=== PATIENT | female | born 1995 | race Caucasian/White ===

== ENCOUNTER → 2019-01-10 | Outpatient (CLI) | payer OTHER | END | disposition home or self-care (01) | LOC: LAB 13:28 | PROVIDERS: ATTEND Preventive Medicine Preventive Medicine/Occupational Environmental Medicine | DX: Z02.1 Encounter for pre-employment examination (principal) | CPT/HCPCS: 36415; 86706; 86735; 86762; 86765 ==

== ENCOUNTER 2025-04-16 07:38 | Inpatient (IN) | payer MEDICAID, OTHER ==
[~2025-04-16] VITALS: Ht 162.6 cm; Wt 61.1 kg
[2025-04-16 08:59] VITALS: PULSE 77; RESP 16; O2SAT 98
--- NOTE | 2025-04-16 08:59 | ED.PDOC ---
GI ASSESSMENT HPI Comments 29 year old female with PMHx ulcerative colitis presents to the ED with a chief compliant of rectal bleeding onset 1 month. Patient has been experiencing rectal bleeding for the past month, [place] [facility] [place] recommended to follow up with GI specialist for colonoscopy. She has appt 04/28/25 with GI specialist. For the p ast few weeks, she has noticed bruising on BLE, generalized muscle aches, generalized weakness. She was diagnosed with ulcerative colitis a few years ago, did not follow up with GI at the time. Denies fall, injury, trauma, nausea, vomiting, diarrhea, dysuria, hematuria, melena, dizziness, chest pain, shortness of breath. No other symptoms or modifying factors present at this time. Chief Complaint: Lower Extremity Time Seen by MD: 08:40 Reviewed Notes: Medications, Allergies Allergies: Coded Allergies: NO KNOWN ALLERGIES (Unverified , 04/16/25) Information Source: Patient Mode of Arrival: Ambulatory Timing: Weeks Duration: Since onset Prehospital treatment: None Vomitus: None Severity: Moderate Recent: None Recent Hx of: None Associated sign and symptoms: Blood in Stool Past Medical History Past Medical History (Other): ulcerative colitis Surgical History: Denies all surgeries BUHR DRESSER History: No Pertinent BUHR DRESSER History Family History Family History: Reviewed,noncontributory to illness, No family hx of Cancer, No family hx of DM, No family hx of Heart flory, No family hx of HTN, No family hx ofKidney flory, No family hx of Liver flory, No family hx of Lung flory, No family hx of Stroke Social History Smoker: Non-Smoker Alcohol: Denies ETOH Use Drugs: Denies Drug Use Lives In: Home Constitutional: reports: weakness; denies: chills, diaphoresis, fatigue, fever, malaise, sweats, others EENTM: denies: blurred vision, double vision, ear bleeding, ear discharge, ear drainage, ear pain, ear ringing, eye pain, eye redness, hearing loss, mouth pain, mouth swelling, nasal discharge, nose bleeding, nose congestion, nose pain, photophobia, tearing, throat pain, throat swelling, voice changes, others Respiratory: denies: cough, hemoptysis, orthopnea, SOB at rest, shortness of breath, SOB with excertion, stridor, wheezing, others Cardiovascular: denies: chest pain, dizzy spells, diaphoresis, Dyspnea on exertion, edema, irregular heart beat, left arm pain, lightheadedness, palpitations, PND, syncope, others Gastrointestinal: reports: rectal bleeding; denies: abdomen distended, abdominal pain, blood streaked bowels, constipated, diarrhea, dysphagia, difficulty swallowing, hematemesis, melena, nausea, poor appetite, poor fluid intake, rectal pain, vomiting, others Genitourinary: denies: abnormal vagina bleeding, burning, dyspareunia, dysuria, flank pain, frequency, hematuria, incontinence, pain, , vagina discharge, urgency, others Neurological: denies: dizziness, fainting, headache, left sided numbness, left sided weakness, numbness, paresthesia, pre-existing deficit, right sided numbness, right sided weakness, seizure, speech problems, tingling, tremors, weakness, others Musculoskeletal: reports: others (BLE brusing, generalized muscle aches); denies: back pain, gout, joint pain, joint swelling, muscle pain, muscle stiffness, neck pain Integumetry: reports: bruises (BLE); denies: change in color, change in hair/nails, dryness, laceration, lesions, lumps, rash, wounds, others Allergic/Immunocompromised: denies: Difficulty Healing, Frequent Infections, Hives, Itching, others Hematologic/Lymphatic: denies: anemia, blood clots, easy bleeding, easy bruising, swollen glands, others Endocrine: denies: excessive hunger, excessive sweating, excessive thirst, excessive urination, flushing, intolerance to cold, intolerance to heat, unexplained weight gain, unexplained weight loss, others Psychiatric: denies: anxiety, bipolar disorder, depression, hopeless, panic disorder, schizophrenia, sleepless, suicidal, others All Other Systems: Reviewed and Negative Physical Exam General Appearance: Normal, Other (pale appearance) HEENT: Normal ENT Inspection, Pharynx Normal, TMs Normal Neck: Full Range of Motion, Non-Tender, Normal, Normal Inspection Respiratory: Chest Non-Tender, Lungs Clear, No Accessory Muscle Use, No Respiratory Distress, Normal Breath Sounds Cardiovascular: No Edema, No JVD, No Murmur, No Gallop, Normal Peripheral Pulses, Regular Rate/Rhythm Breast Exam: Deferred Gastrointestinal: No Organomegaly, Non Tender, No Pulsatile Mass, Normal Bowel Sounds, Soft Genitalia: Deferred Pelvic: Deferred Rectal: Deferred Extremities: No calf tenderness, Normal capillary refill, Normal range of motion, Non-tender, No pedal edema Musculoskeletal : Location: Bilateral Extremity Location: Leg (ecchymosis) Apperance: Normal Neurologic: Alert, steel erector apprentice II-XII nml as Tested, No Motor Deficits, Normal Affect, Normal Mood, No Sensory Deficits Cerebellar Function: Normal Reflexes: Normal Skin: Bruises (BLE) Lymphatic: No Adenopathy Was a procedure done? Was a procedure done?: No GI differential Dx Differential Diagnosis: GI hemorrhage, Other (ulcerative colitis) X-Ray, Labs, Meds, VS Vital Signs Date Time Temp Pulse Resp B/P (MAP) Pulse Ox O2 Delivery O2 Flow Rate FiO2 04/16/25 08:59 77 16 98 Room Air* 0 21 04/16/25 08:57 97.9 77 18 131/80 (97) 99 97.9 04/16/25 07:40 97.0 93 15 140/91 100 97.0 Lab Test 04/16/25 09:18 04/16/25 09:03 Range/Units Urine Color Light-yellow Yellow Urine Clarity Clear Clear Urine pH 5.5 5.0-9.0 Urine Specific [place] 1.015 1.001-1.035 Urine Protein Negative Negative Urine Ketones Negative Negative Urine Blood Negative Negative /uL Urine Nitrite Negative Negative Urine Bilirubin Negative Negative Urine Urobilinogen Normal Negative mg/dL Urine Leukocyte Esterase Negative Negative /uL Urine RBC 1 0 - 4 /hpf Urine Microscopic WBC 1 0-5 /HPF Urine Squamous Epithelial Cells Few <5 /hpf Urine Bacteria None seen None Seen /hpf Urine Glucose Normal Normal mg/dL White Blood Count 5.5 4.4-10.8 10^3/uL Red Blood Count 4.47 4.0-5.20 10^6/uL Hemoglobin 12.0 L 12.2-16.2 g/dL Hematocrit 36.9 36.0-46.0 % Mean Corpuscular Volume 82.7 80.0-100.0 fL Mean Corpuscular Hemoglobin 26.9 L 28.0-32.0 pg Mean Corpuscular Hemoglobin Concent 32.5 32.0-36.0 g/dL Red Cell Distribution Width 12.9 11.8-14.3 % Platelet Count 295 140-450 10^3/uL Mean Platelet Volume 8.5 6.9-10.8 fL Neutrophils (%) (Auto) 69.7 37.0-80.0 % Lymphocytes (%) (Auto) 24.1 10.0-50.0 % Monocytes (%) (Auto) 5.5 0.0-12.0 % Eosinophils (%) (Auto) 0.2 0.0-7.0 % Basophils (%) (Auto) 0.5 0.0-2.0 % Neutrophils # (Auto) 3.8 1.6-8.6 10 ^3/uL Lymphocytes # (Auto) 1.3 0.4-5.4 10 ^3/uL Monocytes # (Auto) 0.3 0-1.3 10 ^3/uL Eosinophils # (Auto) 0 0-0.8 10 ^3/uL Basophils # (Auto) 0 0-0.2 10 ^3/uL Nucleated Red Blood Cells 0.1 % Prothrombin Time 10.3 9.3-11.8 sec Prothrombin Time INR 0.97 0.9-1.15 Activated Partial Thromboplast Time 26.3 24.5-34.5 SEC Sodium Level 141 136-145 mmol/L Potassium Level 4.2 3.5-5.1 mmol/L Chloride Level 104 98-107 mmol/L Carbon Dioxide Level 26 20-31 mmol/L Anion Gap 11 5-15 Blood Urea Nitrogen 15 9-23 mg/dL Creatinine 0.75 0.550-1.02 mg/dL Glomerular Filtration Rate Calc 110 >90 mL/min BUN/Creatinine Ratio 20.0 10.0-20.0 Serum Glucose 86 74-106 mg/dL Lactic Acid Level 0.9 0.4-2.0 mmol/L Calcium Level 9.2 8.7-10.4 mg/dL Current Medications Medications (Trade) Dose Ordered Sig/Stephanie Route Start Time Stop Time Status Last Admin Sodium Chloride 1,000 ml @ 1,000 mls/hr Q1H ONCE IV 04/16/25 09:00 04/16/25 09:59 DC 04/16/25 09:14 Time of 1ST Reevaluation: 09:20 Reevaluation 1ST: Unchanged Patient Education/Counseling: Diagnosis, Treatment, Prognosis Family Education/Counseling: No Family Present SEPSIS Sepsis Screen Date sepsis recognized/suspect: Apr 16, 2025 Time Sepsis recognized/suspect: 0742 Recent Procedure: No On Antibiotic Therapy: No Respiratory Rate >20: No Heart Rate >90: No Temp<36 C (96.8 F) or >38.3 C: No SBP <90 or MAP <65 mmHG: No New Acute Mental Status Change: No Is the patient on CPAP, BIPAP,: No Physician Orders Ct Ab Pel With Iv Con Only (04/16/25 10:44) Vital Signs Date Time Temp Pulse Resp B/P (MAP) Pulse Ox O2 Delivery O2 Flow Rate FiO2 04/16/25 08:59 77 16 98 Room Air* 0 21 04/16/25 08:57 97.9 77 18 131/80 (97) 99 97.9 04/16/25 07:40 97.0 93 15 140/91 100 97.0 Laboratory Tests Test 04/16/25 09:03 Lactic Acid Level 0.9 mmol/L (0.4-2.0) White Blood Count 5.5 10^3/uL (4.4-10.8) Medications Medications Dose Ordered Sig/Stephanie Route Start Time Stop Time Status Last Admin Dose Admin Sodium Chloride 1,000 ml @ 1,000 mls/hr Q1H ONCE IV 04/16/25 09:00 04/16/25 09:59 DC 04/16/25 09:14 Departure 1 Departure Time of Disposition: 12:39 (Patient presents with bright red blood per rectum and frequent bruising throughout her body. Patient with a history of ulcer colitis however does not taken any medications for follow up with anyone. Patient with concerns for possible UC flare versus uncontrolled autoimmune process. We will admit patient for further workup and expert consultation) Impression: Primary Impression: GI bleed Additional Impressions: Ecchymosis Ulcerative colitis Generalized weakness Disposition: ADMITTED INPATIENT Admit to: Med Surg Condition: Guarded Critical Care Note Critical Care Time?: No Stability Stability form required: No Heart Score Heart Score: Heart Score Response (Comments) Value History N/A 0 EKG N/A 0 Age N/A 0 Risk Factors N/A 0 Troponin N/A 0 Total 0 I personally scribed for LENY NICHOLS MD ([email or web address]) on 04/16/25 at 08:59. El ectronically submitted by Sarah Bal ([email or web address]). LENY NICHOLS MD Apr 16, 2025 08:59
[2025-04-16] MEDS: SODIUM CHLORIDE 0.9% 1,000 ML IV ONE (09:14)
[2025-04-16 09:30] LABS: Hematocrit 36.9 % (36.0-46.0); Hemoglobin 12.0 g/dL (12.2-16.2); Mean Corpuscular Hemoglobin 26.9 pg (28.0-32.0); Mean Corpuscular Volume 82.7 fL (80.0-100.0); Nucleated Red Blood Cells % 0.1 %
[2025-04-16 09:38] LABS: Anion Gap 11 (5-15); Carbon Dioxide 26 mmol/L (20-31); Chloride 104 mmol/L (98-107); Potassium 4.2 mmol/L (3.5-5.1); Sodium 141 mmol/L (136-145)
[2025-04-16 09:39] LABS: Calcium 9.2 mg/dL (8.7-10.4)
[2025-04-16 09:44] LABS: BUN/Creatinine Ratio 20.0 (10.0-20.0); Blood Urea Nitrogen 15 mg/dL (9-23); Glucose 86 mg/dL (74-106)
[2025-04-16 09:52] LABS: INR 0.97 (0.9-1.15); Partial Thromboplastin Time 26.3 SEC (24.5-34.5); Prothrombin Time 10.3 sec (9.3-11.8)
[2025-04-16 10:23] LABS: Urine Protein, UAD Negative (Negative)
[2025-04-16] MEDS: IOHEXOL 300 MG/ML 100ML BOTTLE IJ ONE (11:00)
--- NOTE | 2025-04-16 11:52 | DVH ---
INDICATION: abdominal pain, brbpr TECHNIQUE: CT axial images of the abdomen and pelvis are obtained with intravenous contrast. Coronal and sagittal reformats were obtained. Radiation Dose Information: CTDI volume is 6.32 mGy. Dose-length product is 331.67 mGy*cm COMPARISON: CT ABD/PEL W - IV on DOS: 03/17/25 FINDINGS: Lung bases demonstrate no pleural effusion. Adrenal glands, spleen, pancreas unremarkable. No enhancing hepatic lesion. No CT evidence for cholelithiasis. No hydronephrosis. Stomach is partially distended. Small bowel loops are normal in caliber. Moderate volume stool in the colon. Normal appendix. Abdominal aorta normal in caliber. Bladder distended. Intrauterine device. Trace free pelvic fluid. No inguinal lymphadenopathy. [id number] bilateral sacroiliac degenerative joint disease. No aggressive osseous process. IMPRESSION: Moderate volume stool within the colon. Intrauterine device. Trace free pelvic fluid.
[2025-04-16] MEDS ORDERED: ACETAMINOPHEN 325 MG TAB PO PRN (14:30)
[2025-04-16] MEDS ORDERED: HYDROcodone-ACET 5/325MG TAB PO PRN (14:30)
--- NOTE | 2025-04-16 15:19 | DVHHP2 ---
History of Present Illness Reason for Visit: Rectal bleeding History of Present Illness Albina Packer is a 29-year-old female with past medical history of ulcerative colitis, who came to the hospital for abdominal pain and bilateral lower extremity bruising. Patient states she was diagnosed with ulcerative colitis in 2017 after having sepsis. She states she has not been taking medications for it and has been mostly ignoring it until recently. She has been experiencing abdominal pain, intermittent constipation, and diarrhea for about 1-2 weeks with associated blood in her stool. She states she has started trying to take care of her UC, she has an appointment [facility] on [facility]24. She also noticed bruising to her bilateral lower extremities. She states the bruising started about 1 week ago, then 2 days ago the amount of bruises doubled. GI: Inflam bowel disease (ulcerative colitis) Heme/Onc: Anemia NOS Past Surgical History: Other (DNC, Eye surgery x 2, ) Smoke: No ALCOHOL: occassional Drugs: None Lives: with Family Domestic Violence: Neg Review of Systems Constitutional: No: Fever, Chills, Sweats, Weakness, Malaise, Other Eyes: No: Pain, Vision change, Conjunctivae inflammation, Eyelid inflammation, Other, Redness ENT: No: Ear pain, Ear discharge, Nose pain, Nose discharge, Nose congestion, Mouth pain, Mouth swelling, Throat pain, Throat swelling, Other Respiratory: No: Cough, Dry, Shortness of breath, SOB with excertion, Wheezing, Hemoptysis, Pleuritic Pain, Sputum, Wheezing, Other Cardiovascular: No: Chest Pain, Palpitations, Orthopnea, Paroxysmal Noc. Dyspnea, Edema, Lt Headedness, Other Gastrointestinal: Abdominal Pain, Diarrhea, Constipation, Melena; No: Nausea, Vomiting, Hematochezia, Other Genitourinary: No Dysuria, No Frequency, No Incontinence, No Hematuria, No Retention, No Other Musculoskeletal: No: other, neck pain, shoulder pain, arm pain, back pain, hand pain, leg pain, foot pain Skin: Bruising (bilateral lower extremities); No: Rash, Lesions, Jaundice, Other Neurological: No: Weakness, Numbness, Incoordination, Change in speech, Confusion, Seizures, Other Allergies: Coded Allergies: NO KNOWN ALLERGIES (Unverified , 04/16/25) Exam Vital Signs Vital Signs Date Time Temp Pulse Resp B/P (MAP) Pulse Ox O2 Delivery O2 Flow Rate FiO2 04/16/25 14:09 97.3 72 16 149/68 (95) 99 97.3 04/16/25 08:59 Room Air* 0 21 General Appearance: Alert, Oriented X3, Cooperative HEENT: Atraumatic, PERRLA Respiratory: Clear to auscultation, Normal air movement Cardiovascular: Regular rate, Normal S1, Normal S2 Abdominal: Normal bowel sounds, Soft, No tenderness, No hepatospenomegaly Extremities: No clubbing, No cyanosis, No edema, No tenderness/swelling Skin: No significant lesion (ecchymosis bilateral lower extremities) Neuro: Normal gait, Normal speech, Strength at 5/5 X4 ext, Normal tone, Sensation intact Psych/Mental Status: Mental status NL, Mood NL Labs/Xrays Labs Test 04/16/25 09:18 04/16/25 09:03 Range/Units Urine Color Light-yellow Yellow Urine Clarity Clear Clear Urine pH 5.5 5.0-9.0 Urine Specific [place] 1.015 1.001-1.035 Urine Protein Negative Negative Urine Ketones Negative Negative Urine Blood Negative Negative /uL Urine Nitrite Negative Negative Urine Bilirubin Negative Negative Urine Urobilinogen Normal Negative mg/dL Urine Leukocyte Esterase Negative Negative /uL Urine RBC 1 0 - 4 /hpf Urine Microscopic WBC 1 0-5 /HPF Urine Squamous Epithelial Cells Few <5 /hpf Urine Bacteria None seen None Seen /hpf Urine Glucose Normal Normal mg/dL White Blood Count 5.5 4.4-10.8 10^3/uL Red Blood Count 4.47 4.0-5.20 10^6/uL Hemoglobin 12.0 L 12.2-16.2 g/dL Hematocrit 36.9 36.0-46.0 % Mean Corpuscular Volume 82.7 80.0-100.0 fL Mean Corpuscular Hemoglobin 26.9 L 28.0-32.0 pg Mean Corpuscular Hemoglobin Concent 32.5 32.0-36.0 g/dL Red Cell Distribution Width 12.9 11.8-14.3 % Platelet Count 295 140-450 10^3/uL Mean Platelet Volume 8.5 6.9-10.8 fL Neutrophils (%) (Auto) 69.7 37.0-80.0 % Lymphocytes (%) (Auto) 24.1 10.0-50.0 % Monocytes (%) (Auto) 5.5 0.0-12.0 % Eosinophils (%) (Auto) 0.2 0.0-7.0 % Basophils (%) (Auto) 0.5 0.0-2.0 % Neutrophils # (Auto) 3.8 1.6-8.6 10 ^3/uL Lymphocytes # (Auto) 1.3 0.4-5.4 10 ^3/uL Monocytes # (Auto) 0.3 0-1.3 10 ^3/uL Eosinophils # (Auto) 0 0-0.8 10 ^3/uL Basophils # (Auto) 0 0-0.2 10 ^3/uL Nucleated Red Blood Cells 0.1 % Prothrombin Time 10.3 9.3-11.8 sec Prothrombin Time INR 0.97 0.9-1.15 Activated Partial Thromboplast Time 26.3 24.5-34.5 SEC Sodium Level 141 136-145 mmol/L Potassium Level 4.2 3.5-5.1 mmol/L Chloride Level 104 98-107 mmol/L Carbon Dioxide Level 26 20-31 mmol/L Anion Gap 11 5-15 Blood Urea Nitrogen 15 9-23 mg/dL Creatinine 0.75 0.550-1.02 mg/dL Glomerular Filtration Rate Calc 110 >90 mL/min BUN/Creatinine Ratio 20.0 10.0-20.0 Serum Glucose 86 74-106 mg/dL Lactic Acid Level 0.9 0.4-2.0 mmol/L Calcium Level 9.2 8.7-10.4 mg/dL TECHNIQUE: CT axial images of the abdomen and pelvis are obtained with intrave nous contrast. FINDINGS: Lung bases demonstrate no pleural effusion. Adrenal glands, spleen, pancreas unremarkable. No enhancing hepatic lesion. No CT evidence for cholelithiasis. No hydronephrosis. Stomach is partially distended. Small bowel loops are normal in caliber. Moderate volume stool in the colon. Normal appendix. Abdominal aorta normal in caliber. Bladder distended. Intrauterine device. Trace free pelvic fluid. No inguinal lymphadenopathy. [id number] bilateral sacroiliac degenerative joint disease. No aggressive osseous process. IMPRESSION: Moderate volume stool within the colon. Intrauterine device. Trace free pelvic fluid. SEPSIS Sepsis Screen Date sepsis recognized/suspect: Apr 16, 2025 Time Sepsis recognized/suspect: 0742 Recent Procedure: No On Antibiotic Therapy: No Respiratory Rate >20: No Heart Rate >90: No Temp<36 C (96.8 F) or >38.3 C: No SBP <90 or MAP <65 mmHG: No New Acute Mental Status Change: No Is the patient on CPAP, BIPAP,: No Physician Orders Ct Ab Pel With Iv Con Only (04/16/25 10:44) Admit (04/16/25 14:26) Code Status (04/16/25 14:) Hydrocodone-Acet 5/325mg Tab (Roma 5/32 (04/16/25 14:30) Ondansetron Hcl (Zofran) (04/16/25 14:30) Docusate Sodium Capsule (Colace Capsule) (04/16/25 14:30) Complete Blood Count (04/17/25 04:00) Comprehensive Metabolic Panel (04/17/25 04:00) Condition: Serious (04/16/25 14:) Acetaminophen Tablet (Tylenol Tablet) (04/16/25 14:30) * Gi Dvh Crossband Layer (04/16/25 14:26) PTPTT (04/16/25 14:) Factor V Leiden Mutation (04/16/25 14:) Von Willebrand Factor (Vwf) Ag (04/16/25 14:) Vital Signs Date Time Temp Pulse Resp B/P (MAP) Pulse Ox O2 Delivery O2 Flow Rate FiO2 04/16/25 14:09 97.3 72 16 149/68 (95) 99 97.3 04/16/25 08:59 77 16 98 Room Air* 0 21 04/16/25 08:57 97.9 77 18 131/80 (97) 99 97.9 04/16/25 07:40 97.0 93 15 140/91 100 97.0 Laboratory Tests Test 04/16/25 09:03 Lactic Acid Level 0.9 mmol/L (0.4-2.0) White Blood Count 5.5 10^3/uL (4.4-10.8) Medications Medications Dose Ordered Sig/Stephanie Route Start Time Stop Time Status Last Admin Dose Admin Sodium Chloride 1,000 ml @ 1,000 mls/hr Q1H ONCE IV 04/16/25 09:00 04/16/25 09:59 DC 04/16/25 09:14 1,000 MLS/HR Assessment/Plan Assessment/Plan Assessment: Ecchymosis, Ulcerative colitis, Possible Erythema Nodosum, Plan: Admit to Med-Surg, GI consult, Stool occult blood, PT/PTT, Factor V, Platelet function test, Clear liquid diet, Plan discussed with: Patient My Orders Orders - SONAM ALVAREZ Procedure Category Date Status Time Admit ADMIT 04/16/25 Verified 14:26 Code Status CODE 04/16/25 Verified 14:26 Hydrocodone-Acet PHA 04/16/25 Verified 5/325mg Tab (Roma 14:30 Ondansetron Hcl PHA 04/16/25 Verified (Zofran) 14:30 Docusate Sodium PHA 04/16/25 Verified Capsule (Colace 14:30 Complete Blood Count LAB 04/17/25 Verified 04:00 Comprehensive LAB 04/17/25 Verified Metabolic Panel 04:00 Condition: Serious ANCA 04/16/25 Verified 14:26 Acetaminophen Tablet PHA 04/16/25 Verified (Tylenol Tablet) 14:30 * Gi Dvh Crossband Layer CONS 04/16/25 Verified 14:26 PTPTT LAB 04/16/25 Verified 14:26 Factor V Leiden LAB 04/16/25 Verified Mutation 14:26 Von Willebrand Factor LAB 04/16/25 Verified (Vwf) Ag 14:26 Date of Service: Apr 16, 2025 Billing Provider: SONAM ALVAREZ Common Visit Codes: 05584-[id number] INP/OBS CARE (MOD) SONAM ALVAREZ Apr 16, 2025 15:19
[2025-04-16 15:22] LABS: INR 1.01 (0.9-1.15); Partial Thromboplastin Time 26.3 SEC (24.5-34.5); Prothrombin Time 10.7 sec (9.3-11.8)
[2025-04-16 17:00] VITALS: BP_SYST 132; BP_SYST 134; BP_DIAS 69; BP_DIAS 97; PULSE 65; PULSE 72; TEMP 98.3; TEMP 98.4; O2SAT 100; O2SAT 93
[2025-04-16 20:00] VITALS: PULSE 84; RESP 18; O2SAT 99
[2025-04-16 21:00] VITALS: BP 112/66; PULSE 84; RESP 18; TEMP 98.2; O2SAT 99
[2025-04-16] MEDS: DOCUSATE SOD 100 MG CAP PO PRN (23:53)
[2025-04-17] VITALS (8 sets, daily range): BP systolic 105–146; BP diastolic 40–91; PULSE 68–75; RESP 17–19; TEMP 97.8–98.5; O2SAT 98–100
[2025-04-17 06:31] LABS: Hematocrit 31.7 % (36.0-46.0); Hemoglobin 10.4 g/dL (12.2-16.2); Mean Corpuscular Hemoglobin 27.0 pg (28.0-32.0); Mean Corpuscular Volume 82.1 fL (80.0-100.0); Nucleated Red Blood Cells % 0.1 %
[2025-04-17 06:38] LABS: Albumin 3.7 g/dL (3.2-4.8); Alkaline Phosphatase 58 U/L (46-116); Anion Gap 8 (5-15); BUN/Creatinine Ratio 17.8 (10.0-20.0); Blood Urea Nitrogen 13 mg/dL (9-23); Calcium 8.7 mg/dL (8.7-10.4); Carbon Dioxide 27 mmol/L (20-31); Chloride 106 mmol/L (98-107); Glucose 86 mg/dL (74-106); Potassium 4.2 mmol/L (3.5-5.1); Sodium 141 mmol/L (136-145); Total Protein 5.9 g/dL (5.7-8.2)
[2025-04-17 06:39] LABS: Bilirubin, Total 0.8 mg/dL (0.2-1.0)
[2025-04-17 06:41] LABS: Alanine Aminotransferase < 9 U/L (7-40)
[2025-04-17 11:08] LABS: Lipase 30.0 U/L (12-53)
--- NOTE | 2025-04-17 16:52 | DVHPNRES ---
Progress Note Date Seen: Apr 17, 2025 Resident Creating Document: COOPER MAZARIEGOS RESIDENT Medical Necessity Reason Pt with a Central, PICC or Fol: No Subjective Review of Systems Albina Packer, a 29 year old female with past medical history of colitis (patient believes she has ulcerative colitis, however no colonoscopy was done during the encounter) she reports having constipation alternate with diarrhea.. The time she has constipation. Since last 2 days she is having episodes of diarrhea mixed with maroon colored blood and mucus. She 1st started having dark pattern current blood mixed stool in March 2025. She gave to a shots in 2016 at [facility], she reports that time she had a retained placenta and sepsis, during that time a CT scan was done and she was told she has ulcerative colitis or colitis. She never had any colonoscopy done. She has multiple bruises and bluish discoloration over both legs. She denies any domestic violence, she feels safe at home. She has 4 children, she believes sometimes while playing with a she might have gotten minor trauma and getting those bruises. She also was gets easy bruises. She reports her mother has paroxysmal nocturnal hemoglobinuria, aplastic anemia, myelodysplastic syndrome and she got a bone marrow transplant recently. She denies any chest pain, shortness of breath, fever, urinary symptoms, recent travel history or sick contacts or any other complaints at this time. Past medical history: As above Past surgical history: Abortions, by surgery. Family history: Significant blood disorder in mother, described as above Denies smoking, alcohol, drugs. Full code Patient was seen and examined at bedside. Her chief complaints were described as above. Objective vital signs Vital Sign Date Time Temp Pulse Resp B/P (MAP) Pulse Ox O2 Delivery O2 Flow Rate FiO2 04/17/25 16:34 98.0 68 19 121/84 (96) 100 98.0 04/17/25 08:00 Room Air* 0 21 Total Intake and Output 04/16/25 04/16/25 04/17/25 15:00 23:00 07:00 Intake Total 1000 ml 500 ml 650 ml Balance 1000 ml 500 ml 650 ml medications Current Medications Medications Dose Ordered Sig/Stephanie Route Start Time Stop Time Status Last Admin Dose Admin Acetaminophen/ Hydrocodone Bitart 1 tab Q4HP PRN PO 04/16/25 14:30 Ondansetron HCl 4 mg Q4HP PRN IV 04/16/25 14:30 Docusate Sodium 100 mg BIDPRN PRN PO 04/16/25 14:30 04/16/25 23:53 100 MG Acetaminophen 650 mg Q6HP PRN PO 04/16/25 14:30 Examination Pt is lying on bed General Appearance: Alert, Oriented X3, Cooperative, Mild distress HEENT: Atraumatic, Mucous membranes moist/pink Respiratory: Clear to auscultation, Normal air movement, No added sounds Cardiovascular: Regular rate, Normal S1, Normal S2, No murmurs Abdominal/ : Active bowel sounds, Soft, no distention, no tenderness Extremities: No edema, Normal pulses, No tenderness/swelling, multiple bruises /bluish coloration over both legs. Rectal exam: No active bleeding, no hemorrhoids, no mass, normal sphincter tone Skin: No Significant rash, except past surgical scars Neuro: Normal speech, sensorimotor deficits none Psych/Mental Status: Mental status NL, Mood NL Nurse was there as diagnostic cardiac sonographer during examination laboratory and microbiology Laboratory Tests 04/17/25 05:13 Test 04/17/25 05:13 Range/Units Serum Glucose 86 74-106 mg/dL Labs and/or images reviewed: Labs reviewed by me, Image(s) reviewed by me Problem List/Assessment/Plan Problem List/Assessment/Plan Intractable diarrhea and abdominal pain possible gastroenteritis Questionable colitis CT abdomen pelvis: Blurry stool burden, IUD in place, minimal pelvic fluid IV fluid Ondansetron [place] Stool occult blood sent Clostridium difficile ordered Gastroenterology consulted Multiple easy bruises Significant family history of PNH, aplastic anemia, myelodysplastic syndrome in mother -PT 10.3> 10.7 -INR 0.97> 1.01 -a PTT 26.3, 26.3 Factor 5 Leiden mutation and von Willebrand antigen ordered pending results GI prophylaxis: Pantoprazole DVT prophylaxis: Held due to concern for bleeding disorder,SCDs Diet: Clear liquid Goals of care discussed with the patient for more than 27 minutes: Full code status Case discussed with Dr. Edwards , patient and RN Plan discussed with: Patient, Other (RN) My Orders My Orders Orders - COOPER MAZARIEGOS Procedure Category Date Status Time Clostridium Difficile GILLIAN 04/17/25 Uncollected Toxin 11:04 Visit Coding STANDARD RES Billing Provider: JAYDA EDWARDS MD Date of Service if different f: Apr 17, 2025 Common Visit Codes: [id number] INP/OBS CARE(HIGH) Secondary Visit Codes: [id number] CARE PLAN 30 MINUTES COOPER MAZARIEGOS Apr 17, 2025 16:52 JAYDA EDWARDS MD Apr 17, 2025 18:41
[2025-04-18] VITALS (8 sets, daily range): BP systolic 106–121; BP diastolic 69–86; PULSE 67–87; RESP 16–18; TEMP 97.4–98.1; O2SAT 97–100
[2025-04-18] MEDS: ONDANSETRON HCL 4 MG/2 ML VIAL IV PRN (05:59)
[2025-04-18 08:25] LABS: Hematocrit 33.7 % (36.0-46.0); Hemoglobin 11.0 g/dL (12.2-16.2); Mean Corpuscular Hemoglobin 26.8 pg (28.0-32.0); Mean Corpuscular Volume 82.2 fL (80.0-100.0); Nucleated Red Blood Cells % 0.0 %
[2025-04-18 08:42] LABS: Albumin 3.9 g/dL (3.2-4.8); Alkaline Phosphatase 60 U/L (46-116); Anion Gap 8 (5-15); BUN/Creatinine Ratio 10.7 (10.0-20.0); Calcium 9.1 mg/dL (8.7-10.4); Carbon Dioxide 26 mmol/L (20-31); Chloride 106 mmol/L (98-107); Glucose 86 mg/dL (74-106); Potassium 4.2 mmol/L (3.5-5.1); Sodium 140 mmol/L (136-145); Total Protein 6.2 g/dL (5.7-8.2)
[2025-04-18 08:43] LABS: Alanine Aminotransferase < 9 U/L (7-40); Bilirubin, Total 0.8 mg/dL (0.2-1.0); Blood Urea Nitrogen 8 mg/dL (9-23)
--- NOTE | 2025-04-18 15:05 | DVHPNRES ---
Progress Note Date Seen: Apr 18, 2025 Resident Creating Document: COOPER MAZARIEGOS RESIDENT Medical Necessity Reason Pt with a Central, PICC or Fol: No Subjective Review of Systems Albina Packer, a 29 year old female with past medical history of colitis (patient believes she has ulcerative colitis, however no colonoscopy was done during the encounter) she reports having constipation alternate with diarrhea.. The time she has constipation. Since last 2 days she is having episodes of diarrhea mixed with maroon colored blood and mucus. She 1st started having dark pattern current blood mixed stool in March 2025. She gave to a shots in 2016 at [facility], she reports that time she had a retained placenta and sepsis, during that time a CT scan was done and she was told she has ulcerative colitis or colitis. She never had any colonoscopy done. She has multiple bruises and bluish discoloration over both legs. She denies any domestic violence, she feels safe at home. She has 4 children, she believes sometimes while playing with a she might have gotten minor trauma and getting those bruises. She also was gets easy bruises. She reports her mother has paroxysmal nocturnal hemoglobinuria, aplastic anemia, myelodysplastic syndrome and she got a bone marrow transplant recently. She denies any chest pain, shortness of breath, fever, urinary symptoms, recent travel history or sick contacts or any other complaints at this time. Past medical history: As above Past surgical history: Abortions Family history: Significant blood disorder in mother, described as above Denies smoking, alcohol, drugs. Full code Patient was seen and examined at bedside. Reports having nausea, 1 more episode of bloody stool. she denies any other complaints. Objective vital signs Vital Sign Date Time Temp Pulse Resp B/P (MAP) Pulse Ox O2 Delivery O2 Flow Rate FiO2 04/18/25 12:33 97.4 73 18 113/79 (90) 99 97.4 04/18/25 08:00 Room Air* 0 21 Total Intake and Output 04/17/25 04/17/25 04/18/25 15:00 23:00 07:00 Intake Total 980 ml 600 ml Balance 980 ml 600 ml medications Current Medications Medications Dose Ordered Sig/Stephanie Route Start Time Stop Time Status Last Admin Dose Admin Acetaminophen/ Hydrocodone Bitart 1 tab Q4HP PRN PO 04/16/25 14:30 Ondansetron HCl 4 mg Q4HP PRN IV 04/16/25 14:30 04/18/25 05:59 4 MG Docusate Sodium 100 mg BIDPRN PRN PO 04/16/25 14:30 04/16/25 23:53 100 MG Acetaminophen 650 mg Q6HP PRN PO 04/16/25 14:30 Examination Examination Pt is lying on bed General Appearance: Alert, Oriented X3, Cooperative, Mild distress HEENT: Atraumatic, Mucous membranes moist/pink Respiratory: Clear to auscultation, Normal air movement, No added sounds Cardiovascular: Regular rate, Normal S1, Normal S2, No murmurs Abdominal/ : Active bowel sounds, Soft, no distention, no tenderness Extremities: No edema, Normal pulses, No tenderness/swelling, multiple bruises /bluish coloration over both legs. Rectal exam: No active bleeding, no hemorrhoids, no mass, normal sphincter tone Skin: No Significant rash, except past surgical scars Neuro: Normal speech, sensorimotor deficits none Psych/Mental Status: Mental status NL, Mood NL Nurse was there as historic site administrator during examination laboratory and microbiology Laboratory Tests 04/18/25 07:57 Test 04/18/25 07:57 Range/Units Serum Glucose 86 74-106 mg/dL Labs and/or images reviewed: Labs reviewed by me, Image(s) reviewed by me Problem List/Assessment/Plan Problem List/Assessment/Plan Intractable diarrhea and abdominal pain possible gastroenteritis Questionable colitis CT abdomen pelvis: Blurry stool burden, IUD in place, minimal pelvic fluid IV fluid Ondansetron [place] Stool occult blood sent Clostridium difficile sent Gastroenterology consulted Multiple easy bruises Significant family history of PNH, aplastic anemia, myelodysplastic syndrome in mother -PT 10.3> 10.7 -INR 0.97> 1.01 -a PTT 26.3, 26.3 Factor 5 Leiden mutation and von Willebrand antigen ordered pending results GI prophylaxis: Pantoprazole DVT prophylaxis: Held due to concern for bleeding disorder,SCDs Diet: Mechanical soft diet Goals of care discussed with the patient for more than 27 minutes: Full code status Case discussed with Dr. Edwards , patient and RN Plan discussed with: Patient, Other (RN) My Orders My Orders Orders - COOPER MAZARIEGOS RESIDENT Procedure Category Date Status Time Soft Diet DIET 04/18/25 Transmitted Lunch * Gi [facility] Agriculture Manager CONS 04/18/25 Transmitted 13:06 Visit Coding STANDARD RES Billing Provider: JAYDA EDWARDS MD Date of Service if different f: Apr 18, 2025 Common Visit Codes: [id number] INP/OBS CARE(HIGH) COOPER MAZARIEGOS RESIDENT Apr 18, 2025 15:05
[2025-04-19] VITALS (7 sets, daily range): BP systolic 109–134; BP diastolic 71–97; PULSE 66–79; RESP 16–18; TEMP 97.2–98.8; O2SAT 97–100
[2025-04-19 07:19] LABS: Hematocrit 34.5 % (36.0-46.0); Hemoglobin 11.4 g/dL (12.2-16.2); Mean Corpuscular Hemoglobin 27.2 pg (28.0-32.0); Mean Corpuscular Volume 82.3 fL (80.0-100.0); Nucleated Red Blood Cells % 0.1 %
[2025-04-19 07:27] LABS: Albumin 4.2 g/dL (3.2-4.8); Alkaline Phosphatase 62 U/L (46-116); Anion Gap 9 (5-15); BUN/Creatinine Ratio 17.9 (10.0-20.0); Blood Urea Nitrogen 14 mg/dL (9-23); Calcium 9.2 mg/dL (8.7-10.4); Carbon Dioxide 27 mmol/L (20-31); Chloride 107 mmol/L (98-107); Glucose 91 mg/dL (74-106); Potassium 4.2 mmol/L (3.5-5.1); Sodium 143 mmol/L (136-145); Total Protein 6.7 g/dL (5.7-8.2)
[2025-04-19 07:28] LABS: Alanine Aminotransferase < 9 U/L (7-40); Bilirubin, Total 0.7 mg/dL (0.2-1.0)
[2025-04-19] MEDS: LACTULOSE 20Gm/30ML SOLN PO SCH (10:41)
[2025-04-19] MEDS: GOLYTELY 4L KIT PO ONE (13:45)
--- NOTE | 2025-04-19 13:46 | DVHINCON2 ---
GI Consult Consult Note GI consult note Date of Consultation: 04/19/2025 Chief Complaint: Colitis Referring Physician: Dr. Burt H&P: 29-year-old female with past medical history of ulcerative colitis admitted with complains of abdominal pain, which has been getting worse on and off since August 2024. Patient also has noticed having bouts of constipation which changes to diarrhea. Patient noticed rectal bleeding March 2025 for one day and is admitted at [facility], and was recommended for outpatient colonoscopy. No colonoscopy in past but patient was diagnosed with ulcerative colitis in 2016. No treatment for this at this time Patient was told about her bowels being enlarged during laparoscopic procedure for endometriosis Past Medical History: Inflammatory bowel disease possible ulcerative colitis, anemia Past Surgical History: D and C, eye surgery Social History: NO smoking, drinking ETOH and use of illegal drugs. Family History: Noncontributory Review of Systems: Constitutional: no fever, chill, weight loss HEENT: no eye pain, no hearing loss, no oral lesion, no scleral icterus Heart: no chest pain, no chest pressure Lung: no cough, no dyspnea with exertion Abdomen: see HPI Physical exam: General: NAD, AAOX3 Chest: lung klein clear to auscultation Heart: RRR, no murmur Abdomen: non-distended, no tenderness to palpation, +BS Labs: Labs Test 04/19/25 06:46 04/17/25 05:13 04/16/25 18:30 04/16/25 14:42 Range/Units White Blood Count 5.9 4.4-10.8 10^3/uL Red Blood Count 4.20 4.0-5.20 10^6/uL Hemoglobin 11.4 L 12.2-16.2 g/dL Hematocrit 34.5 L 36.0-46.0 % Mean Corpuscular Volume 82.3 80.0-100.0 fL Mean Corpuscular Hemoglobin 27.2 L 28.0-32.0 pg Mean Corpuscular Hemoglobin Concent 33.0 32.0-36.0 g/dL Red Cell Distribution Width 12.9 11.8-14.3 % Platelet Count 254 140-450 10^3/uL Mean Platelet Volume 8.5 6.9-10.8 fL Neutrophils (%) (Auto) 56.1 37.0-80.0 % Lymphocytes (%) (Auto) 36.6 10.0-50.0 % Monocytes (%) (Auto) 6.2 0.0-12.0 % Eosinophils (%) (Auto) 0.8 0.0-7.0 % Basophils (%) (Auto) 0.3 0.0-2.0 % Neutrophils # (Auto) 3.3 1.6-8.6 10 ^3/uL Lymphocytes # (Auto) 2.2 0.4-5.4 10 ^3/uL Monocytes # (Auto) 0.4 0-1.3 10 ^3/uL Eosinophils # (Auto) 0 0-0.8 10 ^3/uL Basophils # (Auto) 0 0-0.2 10 ^3/uL Nucleated Red Blood Cells 0.1 % Sodium Level 143 136-145 mmol/L Potassium Level 4.2 3.5-5.1 mmol/L Chloride Level 107 98-107 mmol/L Carbon Dioxide Level 27 20-31 mmol/L Anion Gap 9 5-15 Blood Urea Nitrogen 14 9-23 mg/dL Creatinine 0.78 0.550-1.02 mg/dL Glomerular Filtration Rate Calc 105 >90 mL/min BUN/Creatinine Ratio 17.9 10.0-20.0 Serum Glucose 91 74-106 mg/dL Calcium Level 9.2 8.7-10.4 mg/dL Total Bilirubin 0.7 0.2-1.0 mg/dL Aspartate Amino Transferase (AST) < 8 L 13-40 U/L Alanine Aminotransferase (ALT) < 9 7-40 U/L Alkaline Phosphatase 62 46-116 U/L Total Protein 6.7 5.7-8.2 g/dL Albumin 4.2 3.2-4.8 g/dL Erythrocyte Sedimentation Rate 2 0-20 mm/hr Lactate Dehydrogenase 180 120-246 U/L C-Reactive Protein High Sensitivity 0.07 <1.0 mg/dL Lipase 30 12-53 U/L Platelet Func Collagen/Epinephrine 183 90.0-191.0 sec Prothrombin Time 10.7 9.3-11.8 sec Prothrombin Time INR 1.01 0.9-1.15 Activated Partial Thromboplast Time 26.3 24.5-34.5 SEC Test 04/16/25 09:18 04/16/25 09:03 Range/Units Urine Color Light-yellow Yellow Urine Clarity Clear Clear Urine pH 5.5 5.0-9.0 Urine Specific [place] 1.015 1.001-1.035 Urine Protein Negative Negative Urine Ketones Negative Negative Urine Blood Negative Negative /uL Urine Nitrite Negative Negative Urine Bilirubin Negative Negative Urine Urobilinogen Normal Negative mg/dL Urine Leukocyte Esterase Negative Negative /uL Urine RBC 1 0 - 4 /hpf Urine Microscopic WBC 1 0-5 /HPF Urine Squamous Epithelial Cells Few <5 /hpf Urine Bacteria None seen None Seen /hpf Urine Glucose Normal Normal mg/dL Lactic Acid Level 0.9 0.4-2.0 mmol/L Imaging: CT abdomen pelvis IMPRESSION: Moderate volume stool within the colon. Intrauterine device. Trace free pelvic fluid. Assessment: Abdominal pain History of ulcerative colitis Rectal bleed Plan: Discussed with Dr. Mckeon - Pt will be scheduled for colonoscopy with biopsy tomorrow 04/20/2025. Pt was informed of the risks (bleeding, infection, perforation, reaction to sedation medications and cardiopulmonary arrest) and benefit and is agreeable to undergo the procedures. Thank you for this consult Date of Service: Apr 19, 2025 Billing Provider: BLAISE ADAMS Common Visit Codes: CONSULT ONLY Consultation Codes: [id number] CONSULT <60MIN BLAISE ADAMS Apr 19, 2025 13:46
--- NOTE | 2025-04-19 15:59 | DVHPNRES ---
Progress Note Date Seen: Apr 19, 2025 Resident Creating Document: COOPER MAZARIEGOS RESIDENT Medical Necessity Reason Pt with a Central, PICC or Fol: No Subjective Review of Systems Albina Packer, a 29 year old female with past medical history of colitis (patient believes she has ulcerative colitis, however no colonoscopy was done during the encounter) she reports having constipation alternate with diarrhea.. The time she has constipation. Since last 2 days she is having episodes of diarrhea mixed with maroon colored blood and mucus. She 1st started having dark pattern current blood mixed stool in March 2025. She gave to a shots in 2016 at [facility], she reports that time she had a retained placenta and sepsis, during that time a CT scan was done and she was told she has ulcerative colitis or colitis. She never had any colonoscopy done. She has multiple bruises and bluish discoloration over both legs. She denies any domestic violence, she feels safe at home. She has 4 children, she believes sometimes while playing with a she might have gotten minor trauma and getting those bruises. She also was gets easy bruises. She reports her mother has paroxysmal nocturnal hemoglobinuria, aplastic anemia, myelodysplastic syndrome and she got a bone marrow transplant recently. She denies any chest pain, shortness of breath, fever, urinary symptoms, recent travel history or sick contacts or any other complaints at this time. Past medical history: As above Past surgical history: Abortions Family history: Significant blood disorder in mother, described as above Denies smoking, alcohol, drugs. Full code Patient was seen and examined at bedside. She reports feeling better, however she has some constipation. No other new complaints reported. Objective vital signs Vital Sign Date Time Temp Pulse Resp B/P (MAP) Pulse Ox O2 Delivery O2 Flow Rate FiO2 04/19/25 12:30 98.7 73 18 123/79 (94) 97 98.7 04/19/25 08:00 Room Air* 0 21 Total Intake and Output 04/18/25 04/18/25 04/19/25 15:00 23:00 07:00 Intake Total 880 ml 625 ml Balance 880 ml 625 ml medications Current Medications Medications Dose Ordered Sig/Stephanie Route Start Time Stop Time Status Last Admin Dose Admin Acetaminophen/ Hydrocodone Bitart 1 tab Q4HP PRN PO 04/16/25 14:30 Ondansetron HCl 4 mg Q4HP PRN IV 04/16/25 14:30 04/18/25 05:59 4 MG Docusate Sodium 100 mg BIDPRN PRN PO 04/16/25 14:30 04/16/25 23:53 100 MG Acetaminophen 650 mg Q6HP PRN PO 04/16/25 14:30 Lactulose 30 ml BID PO 04/19/25 10:00 04/19/25 10:41 30 ML Examination Examination Pt is lying on bed General Appearance: Alert, Oriented X3, Cooperative, Mild distress HEENT: Atraumatic, Mucous membranes moist/pink Respiratory: Clear to auscultation, Normal air movement, No added sounds Cardiovascular: Regular rate, Normal S1, Normal S2, No murmurs Abdominal/ : Active bowel sounds, Soft, no distention, no tenderness Extremities: No edema, Normal pulses, No tenderness/swelling, multiple bruises /bluish coloration over both legs. Rectal exam: No active bleeding, no hemorrhoids, no mass, normal sphincter tone Skin: No Significant rash, except past surgical scars Neuro: Normal speech, sensorimotor deficits none Psych/Mental Status: Mental status NL, Mood NL Nurse was there as laundry marker supervisor during examination laboratory and microbiology Laboratory Tests 04/19/25 06:46 Test 04/19/25 06:46 Range/Units Serum Glucose 91 74-106 mg/dL Problem List/Assessment/Plan Problem List/Assessment/Plan Intractable diarrhea and abdominal pain possible gastroenteritis Questionable colitis CT abdomen pelvis: Blurry stool burden, IUD in place, minimal pelvic fluid IV fluid Ondansetron [place] Stool occult blood sent Clostridium difficile sent Gastroenterology consulted, patient is scheduled for colonoscopy tomorrow on 04/20/2025. All the risks and benefits were explained to the patient. Multiple easy bruises Significant family history of PNH, aplastic anemia, myelodysplastic syndrome in mother -PT 10.3> 10.7 -INR 0.97> 1.01 -a PTT 26.3, 26.3 Factor 5 Leiden mutation and von Willebrand antigen ordered pending results GI prophylaxis: Pantoprazole DVT prophylaxis: Held due to concern for bleeding disorder,SCDs Diet: Mechanical soft diet Goals of care discussed with the patient for more than 27 minutes: Full code status Case discussed with Dr. Edwards , patient and RN Plan discussed with: Patient, Other (RN) My Orders My Orders Orders - COOPER MAZARIEGOS RESIDENT Procedure Category Date Status Time * Gi [facility] Resource Specialist Teacher CONS 04/18/25 Transmitted 17:40 Visit Coding STANDARD RES Billing Provider: JAYDA EDWARDS MD Date of Service if different f: Apr 19, 2025 Common Visit Codes: [id number] INP/OBS CARE(HIGH) COOPER MAZARIEGOS RESIDENT Apr 19, 2025 15:59
[2025-04-20 01:00] VITALS: BP 107/68; PULSE 78; RESP 18; TEMP 98.1; O2SAT 100
--- NOTE | 2025-04-20 01:03 | DVH ---
CHEST RADIOGRAPH INDICATION: colonoscopy TECHNIQUE: Single frontal view of the chest was obtained COMPARISON: None FINDINGS: Lungs and pleural spaces are clear. Cardiac silhouette and analilia are within normal limits. Bones and soft tissues demonstrate no significant abnormality. IMPRESSION: No acute disease.
[2025-04-20 05:00] VITALS: BP 107/71; PULSE 79; RESP 17; TEMP 98.4; O2SAT 98
[2025-04-20] MEDS: MAGNESIUM CITRATE SOLUTION 300 ML BTL PO ONE (05:23)
[2025-04-20] MEDS: GOLYTELY 4L KIT PO ONE (05:23)
[2025-04-20 06:56] LABS: Hematocrit 32.1 % (36.0-46.0); Hemoglobin 10.8 g/dL (12.2-16.2); Mean Corpuscular Hemoglobin 27.4 pg (28.0-32.0); Mean Corpuscular Volume 81.6 fL (80.0-100.0); Nucleated Red Blood Cells % 0.0 %
[2025-04-20 07:07] LABS: Anion Gap 11 (5-15); Carbon Dioxide 25 mmol/L (20-31); Chloride 105 mmol/L (98-107); Potassium 3.6 mmol/L (3.5-5.1); Sodium 141 mmol/L (136-145)
[2025-04-20 07:08] LABS: Calcium 9.0 mg/dL (8.7-10.4)
[2025-04-20 07:13] LABS: BUN/Creatinine Ratio 12.9 (10.0-20.0); Glucose 79 mg/dL (74-106)
[2025-04-20 07:18] LABS: Blood Urea Nitrogen 9 mg/dL (9-23)
[2025-04-20 08:00] VITALS: PULSE 80; RESP 17; O2SAT 100
[2025-04-20 09:04] VITALS: BP 118/70; PULSE 85; RESP 19; TEMP 97.7; O2SAT 99
[2025-04-20] MEDS ORDERED: ONDANSETRON HCL 4 MG/2 ML VIAL ONE (11:15)
[2025-04-20] MEDS ORDERED: LIDOCAINE 2% (LOCAL ANESTH.) PF 5ml SDV ONE (11:15)
[2025-04-20] MEDS ORDERED: METOCLOPRAMIDE HCL 5MG/ml INJ 2ml VIAL ONE (11:15)
[2025-04-20] MEDS ORDERED: PROPOFOL 10 MG/ML 20 ML IV ONE (11:16)
[2025-04-20 11:38] VITALS: PULSE 94; RESP 22; O2SAT 100
--- NOTE | 2025-04-20 11:57 | DVHOP2 ---
Operative Report DATE OF OPERATION: 04/20/25 PROCEDURE: Colonoscopy with cold biopsy. PREOPERATIVE INDICATION: The patient is a 29 -year-old female undergoing colonoscopy for abdominal pain and rectal bleeding and previous history of colitis POSTOPERATIVE DIAGNOSES: 1. Patient had some residual stigmata of previous proctosigmoiditis which did not appear to be active at this time and rectosigmoid biopsies were obtained 2. [id number] tortuosity of the colon especially involving the sigmoid and the splenic flexure 3. 1+ internal hemorrhoids otherwise essentially completely normal colonoscopy examination up to the cecum and terminal ileum PROCEDURE PERFORMED BY: Ping Olea M.D. SCOPE: Olympus videocolonoscope. ASA CLASS: 2. PREOPERATIVE MEDICATIONS: Markus vee, [place] PROCEDURE IN DETAIL: After obtaining an informed consent, the patient was placed on left lateral decubitus position. She was then sedated with the above medications. A rectal examination was performed that was normal. The colonoscope was then passed through the anus into the rectosigmoid and through the descending, transverse, and ascending colon up to the cecum with visualization of the appendiceal orifice, base of the cecum and the ileocecal valve. The colonoscope was then withdrawn. The distal 5-10 cm of the terminal ileum were normal The colonic mucosa essentially appeared to be normal. Random colon biopsies were obtained Patient had [id number] tortuosity of the colon especially involving the sigmoid and the splenic flexure There was some stigmata of residual proctosigmoiditis with some aphthous like appearing healed ulcerations. However there was no active ulceration and no active proctitis. Rectosigmoid biopsies were obtained On retroflexion and straight on view the patient had 1+ internal hemorrhoids but there was no active bleeding at this time The patient tolerated the procedure well without difficulty. WITHDRAWAL TIME: 9 minutes QUALITY OF THE PREP: [place] Bowel Prep score: 9. COMPLICATIONS : None SPECIMENS: Random colon biopsies Rectosigmoid biopsies DISPOSITION: Transfer back to the floor Stable PLAN: 1. Repeat colonoscopy base on biopsy result likely in 10 years 2. Resume GI soft diet advance as tolerated 3. Outpatient follow up with me in 2-4 weeks after discharge for ongoing GI management 4. I would treat her with some Proctocream or Anusol for her hemorrhoids and mesalamine 800 mg p.o. twice a day upon discharge PING OLEA MD Apr 20, 2025 11:57
--- NOTE | 2025-04-20 15:13 | DVHDSRES ---
Discharge Summary Date of Admission Resident Creating Document: COOPER MAZARIEGOS Apr 16, 2025 at 14:45 Date of Discharge: Apr 20, 2025 Labs/Diagnostic Data: Laboratory Results Test 04/20/25 05:50 04/19/25 17:31 04/19/25 06:46 04/17/25 05:13 White Blood Count 5.8 10^3/uL (4.4-10.8) Red Blood Count 3.94 10^6/uL (4.0-5.20) Hemoglobin 10.8 g/dL (12.2-16.2) Hematocrit 32.1 % (36.0-46.0) Mean Corpuscular Volume 81.6 fL (80.0-100.0) Mean Corpuscular Hemoglobin 27.4 pg (28.0-32.0) Mean Corpuscular Hemoglobin Concent 33.6 g/dL (32.0-36.0) Red Cell Distribution Width 12.7 % (11.8-14.3) Platelet Count 222 10^3/uL (140-450) Mean Platelet Volume 8.9 fL (6.9-10.8) Neutrophils (%) (Auto) 60.2 % (37.0-80.0) Lymphocytes (%) (Auto) 30.7 % (10.0-50.0) Monocytes (%) (Auto) 8.0 % (0.0-12.0) Eosinophils (%) (Auto) 0.7 % (0.0-7.0) Basophils (%) (Auto) 0.4 % (0.0-2.0) Neutrophils # (Auto) 3.5 10 ^3/uL (1.6-8.6) Lymphocytes # (Auto) 1.8 10 ^3/uL (0.4-5.4) Monocytes # (Auto) 0.5 10 ^3/uL (0-1.3) Eosinophils # (Auto) 0 10 ^3/uL (0-0.8) Basophils # (Auto) 0 10 ^3/uL (0-0.2) Nucleated Red Blood Cells 0.0 % Sodium Level 141 mmol/L (136-145) Potassium Level 3.6 mmol/L (3.5-5.1) Chloride Level 105 mmol/L (98-107) Carbon Dioxide Level 25 mmol/L (20-31) Anion Gap 11 (5-15) Blood Urea Nitrogen 9 mg/dL (9-23) Creatinine 0.70 mg/dL (0.550-1.02) Glomerular Filtration Rate Calc 119 mL/min (>90) BUN/Creatinine Ratio 12.9 (10.0-20.0) Serum Glucose 79 mg/dL (74-106) Calcium Level 9.0 mg/dL (8.7-10.4) Stool Occult Blood Negative (Negative) Stool Occult Blood Sample #3 (Negative) Total Bilirubin 0.7 mg/dL (0.2-1.0) Aspartate Amino Transferase (AST) < 8 U/L (13-40) Alanine Aminotransferase (ALT) < 9 U/L (7-40) Alkaline Phosphatase 62 U/L (46-116) Total Protein 6.7 g/dL (5.7-8.2) Albumin 4.2 g/dL (3.2-4.8) Beta HCG, Quantitative 0.9 mIU/mL (1.5-4.2) Erythrocyte Sedimentation Rate 2 mm/hr (0-20) Lactate Dehydrogenase 180 U/L (120-246) C-Reactive Protein High Sensitivity 0.07 mg/dL (<1.0) Lipase 30 U/L (12-53) Test 04/16/25 18:30 04/16/25 14:42 04/16/25 09:18 04/16/25 09:03 Platelet Func Collagen/Epinephrine 183 sec (90.0-191.0) Prothrombin Time 10.7 sec (9.3-11.8) Prothrombin Time INR 1.01 (0.9-1.15) Activated Partial Thromboplast Time 26.3 SEC (24.5-34.5) von Willebrand Factor Antigen 58 % (50-200) Urine Color Light-yellow (Yellow) Urine Clarity Clear (Clear) Urine pH 5.5 (5.0-9.0) Urine Specific [place] 1.015 (1.001-1.035) Urine Protein Negative (Negative) Urine Ketones Negative (Negative) Urine Blood Negative /uL (Negative) Urine Nitrite Negative (Negative) Urine Bilirubin Negative (Negative) Urine Urobilinogen Normal mg/dL (Negative) Urine Leukocyte Esterase Negative /uL (Negative) Urine RBC 1 /hpf (0 - 4) Urine Microscopic WBC 1 /HPF (0-5) Urine Squamous Epithelial Cells Few /hpf (<5) Urine Bacteria None seen /hpf (None Seen) Urine Glucose Normal mg/dL (Normal) Lactic Acid Level 0.9 mmol/L (0.4-2.0) Other Laboratory Tests 04/20/25 05:50 Brief Hx & Hospital Course: Diandra Packer, a 29 year old female with past medical history of colitis (patient believes she has ulcerative colitis, however no colonoscopy was done during the encounter) she reports having constipation alternate with diarrhea.. The time she has constipation. Since last 2 days she is having episodes of diarrhea mixed with maroon colored blood and mucus. She 1st started having dark pattern current blood mixed stool in March 2025. She gave to a shots in 2016 at [facility], she reports that time she had a retained placenta and sepsis, during that time a CT scan was done and she was told she has ulcerative colitis or colitis. She never had any colonoscopy done. She has multiple bruises and bluish discoloration over both legs. She denies any domestic violence, she feels safe at home. She has 4 children, she believes sometimes while playing with a she might have gotten minor trauma and getting those bruises. She also was gets easy bruises. She reports her mother has paroxysmal nocturnal hemoglobinuria, aplastic anemia, myelodysplastic syndrome and she got a bone marrow transplant recently. She denies any chest pain, shortness of breath, fever, urinary symptoms, recent travel history or sick contacts or any other complaints at this time. Past medical history: As above Past surgical history: Abortions, by surgery. Family history: Significant blood disorder in mother, described as above Denies smoking, alcohol, drugs. Full code Brief hospital course: On further evaluation abdomen pelvis CT was unremarkable. Gi consult was appreciated, colonoscopy revealed internal hemorrhoids. She is prescribed anusol and meselamine on discharge. Stool FOBT sent, pending results. For easy bruises coagulation studies were done, no abnormallity detected, follow up outpatient with the results of pending factor V leiden and vWF results. On the day of discharge, patient was hemodynamically stable, verbalized understanding of the treatment and agreed to follow up outpatient with DC clinic,PCP and GI.Pt is lying on bed General Appearance: Alert, Oriented X3, Cooperative, Mild distress HEENT: Atraumatic, Mucous membranes moist/pink Respiratory: Clear to auscultation, Normal air movement, No added sounds Cardiovascular: Regular rate, Normal S1, Normal S2, No murmurs Abdominal/ : Active bowel sounds, Soft, no distention, no tenderness Extremities: No edema, Normal pulses, No tenderness/swelling, multiple bruises /bluish coloration over both legs. Rectal exam: No active bleeding, no hemorrhoids, no mass, normal sphincter tone Skin: No Significant rash, except past surgical scars Neuro: Normal speech, sensorimotor deficits none Psych/Mental Status: Mental status NL, Mood NL Nurse was there as double end trimmer during examination GI prophylaxis: Pantoprazole DVT prophylaxis: Held due to concern for bleeding disorder,SCDs Diet: Mechanical soft diet Goals of care discussed with the patient for more than 27 minutes: Full code status Case discussed with Dr. Edwards , patient and RN Operations or Procedures PATIENT: ANILA PACKER: [id number]: [id number] : 1995 LOC: [facility] ROOM / BED: [address] [place] [address] AGE / SEX: 29 / F ADM STATUS: ADM IN SERVICE [id number] ORDERING PHYSICIAN: COOPER MAZARIEGOS PROCEDURE(s): CXRP - CHEST PORTABLE REASON: colonoscopy ORDER NUMBER(s): [id number], ACCESSION NUMBER(s): [id number] CHEST RADIOGRAPH INDICATION: colonoscopy TECHNIQUE: Single frontal view of the chest was obtained COMPARISON: None FINDINGS: Lungs and pleural spaces are clear. Cardiac silhouette and analilia are within normal limits. Bones and soft tissues demonstrate no significant abnormality. IMPRESSION: No acute disease. ATED BY: ROCAEL QUIÑONEZ MD DICTATED DATE/TIME: 04/20/2599 SIGNED BY: ROCAEL QUIÑONEZ MD SIGNED DATE/TIME: 04/20/2599 PATIENT: ANILA PACKER: [id number]: [id number] : 1995 LOC: ER ROOM / BED: / AGE / SEX: 29 / F ADM STATUS: REG ER SERVICE [id number] ORDERING PHYSICIAN: LENY NICHOLS MD PROCEDURE(s): ABPLIV - CT AB PEL WITH IV CON ONLY REASON: abdominal pain, brbpr ORDER NUMBER(s): [id number], ACCESSION NUMBER(s): [id number] INDICATION: abdominal pain, brbpr TECHNIQUE: CT axial images of the abdomen and pelvis are obtained with intravenous contrast. Coronal and sagittal reformats were obtained. Radiation Dose Information: CTDI volume is 6.32 mGy. Dose-length product is 331.67 mGy*cm COMPARISON: CT ABD/PEL W - IV on DOS: 03/17/25 FINDINGS: Lung bases demonstrate no pleural effusion. Adrenal glands, spleen, pancreas unremarkable. No enhancing hepatic lesion. No CT evidence for cholelithiasis. No hydronephrosis. Stomach is partially distended. Small bowel loops are normal in caliber. Moderate volume stool in the colon. Normal appendix. Abdominal aorta normal in caliber. Bladder distended. Intrauterine device. Trace free pelvic fluid. No inguinal lymphadenopathy. Aolp-mp-wxaenymd bilateral sacroiliac degenerative joint disease. No aggressive osseous process. IMPRESSION: Moderate volume stool within the colon. Intrauterine device. Trace free pelvic fluid. ATED BY: DELANEY FRANCISCO MD DICTATED DATE/TIME: 04/16/25 1150 SIGNED BY: DELANEY FRANCISCO MD SIGNED DATE/TIME: 04/16/25 1150 CC: Patient: DIANDRA PACKER Acct: [id number] : 1995 Loc: [facility] Age/Sex: 29/F Room: [facility] / Bed: A Attending Phy: COOPER MAZARIEGOS RESIDENT Operative Report DATE OF OPERATION: 04/20/25 PROCEDURE: Colonoscopy with cold biopsy. PREOPERATIVE INDICATION: The patient is a 29 -year-old female undergoing colonoscopy for abdominal pain and rectal bleeding and previous history of colitis POSTOPERATIVE DIAGNOSES: 1. Patient had some residual stigmata of previous proctosigmoiditis which did not appear to be active at this time and rectosigmoid biopsies were obtained 2. Hapz-mn-gvokccux tortuosity of the colon especially involving the sigmoid and the splenic flexure 3. 1+ internal hemorrhoids otherwise essentially completely normal colonoscopy examination up to the cecum and terminal ileum PROCEDURE PERFORMED BY: Ping Olea M.D. SCOPE: Olympus videocolonoscope. ASA CLASS: 2. PREOPERATIVE MEDICATIONS: Mac sedation, [place] sim PROCEDURE IN DETAIL: After obtaining an informed consent, the patient was placed on left lateral decubitus position. She was then sedated with the above medications. A rectal examination was performed that was normal. The colonoscope was then passed through the anus into the rectosigmoid and through the descending, transverse, and ascending colon up to the cecum with visualization of the appendiceal orifice, base of the cecum and the ileocecal valve. The colonoscope was then withdrawn. The distal 5-10 cm of the terminal ileum were normal The colonic mucosa essentially appeared to be normal. Random colon biopsies were obtained Patient had ukel-va-lnrmwfxo tortuosity of the colon especially involving the sigmoid and the splenic flexure There was some stigmata of residual proctosigmoiditis with some aphthous like appearing healed ulcerations. However there was no active ulceration and no active proctitis. Rectosigmoid biopsies were obtained On retroflexion and straight on view the patient had 1+ internal hemorrhoids but there was no active bleeding at this time The patient tolerated the procedure well without difficulty. WITHDRAWAL TIME: 9 minutes QUALITY OF THE PREP: Globe Bowel Prep score: 9. COMPLICATIONS : None SPECIMENS: Random colon biopsies Rectosigmoid biopsies DISPOSITION: Transfer back to the floor Stable PLAN: 1. Repeat colonoscopy base on biopsy result likely in 10 years 2. Resume GI soft diet advance as tolerated 3. Outpatient follow up with me in 2-4 weeks after discharge for ongoing GI management 4. I would treat her with some Proctocream or Anusol for her hemorrhoids and mesalamine 800 mg p.o. twice a day upon discharge PING OLEA MD Apr 20, 2025 11:57 DICTATED BY:PING OLEA MD DICTATED DATE/TIME:04/20/25 1157 ELECTRONICALLY SIGNED BY:PING OLEA MD 04/20/25 1150 ELECTRONICALLY CO-SIGNED BY: Condition at Discharge: Stable Final Diagnosis/Problems List Internal hemorrhoids Ruled out ulcerative colitis Intractable diarrhea and abdominal pain possible infectious gastroenteritis per rectal bleeding due to internal hemorrhoids. ruled out ulcerative colitis Multiple easy bruises Significant family history of PNH, aplastic anemia, myelodysplastic syndrome in mother Discharge Disposition: Home Discharge Instruct/Medications Diet: Regular Activity: No Restrictions, As Tolerated Follow Up/Referral: With DC clinic, PCP and GI in 1 week Scheduled Hydrocortisone Base (Anusol-Hc), 1 APPLIC TOP BID Mesalamine (Mesalamine Dr), 800 MG PO TID Discharge Statement: "Patient was advised to return to the ER or call 911 if any headaches, dizziness, shortness of breath, chest pain, abdominal pain, bleeding, fevers, or worsening of medical condition. Patient was counseled about treatment plan, medications, possible side effects, patientverbalized understanding. All questions were answered to the best of my ability. This discharge took greater then 30 minutes in planning, reviewing documentation, counseling the patient, and discussing with other team members." ASSESSMENT ASSESSMENT Assessment Internal hemorrhoids Ruled out ulcerative colitis Visit Coding STANDARD RES Billing Provider: EVITA PRUITT MD Date of Service if different f: Apr 20, 2025 Common Visit Codes: 07470-UNK/OBS DISCH DAY >30min COOPER MAZARIEGOS Apr 20, 2025 15:13 EVITA PRUITT MD Apr 21, 2025 10:01
[2025-04-20 15:16] VITALS: BP 120/71; PULSE 100; RESP 18; TEMP 97.7; O2SAT 100
[2025-04-20] MEDS ORDERED: MESA800T9 PO (16:10)
[2025-04-20] MEDS ORDERED: HYDR2.5C39 TOP (16:10)
== END 2025-04-20 15:50 | disposition home or self-care (01) | DRG 249 ==
LOC: ER 07:38 → OVERFLOW 14:45 → WEST WING 23:23
PROVIDERS: ADMIT Internal Medicine; ATTEND Internal Medicine
PROC: 0DBN8ZX Excision of Sigmoid Colon, Via Natural or Artificial Opening Endoscopic, Diagnostic (ICD-10-PCS; principal; 2025-04-20 11:11)
DX: A09 Infectious gastroenteritis and colitis, unspecified (principal); K64.8 Other hemorrhoids; Z83.2 Family history of diseases of the blood and blood-forming organs and certain disorders involving the immune mechanism
CPT/HCPCS: 36415; 45380; 71045; 74177; 80048; 80053; 81001; 81241; 82270; 83605; 83615; 83690; 84702; 85025; 85246; 85576; 85610; 85652; 85730; 86141; 86850; 86900; 86901; G0378; J2003; J2405; J2704